=== PATIENT | female | born 1985 | race Caucasian/White ===

== ENCOUNTER 2021-09-13 03:55 | Inpatient (IN) | payer OTHER, SELFPAY ==
[2021-09-13] VITALS (65 sets, daily range): BP systolic 89–193; BP diastolic 51–168; PULSE 57–139; RESP 14–22; TEMP 36.3–37.7; O2SAT 96–99; BMI 37.7; BMI 37.5
[2021-09-13] MEDS: LACTATED RINGERS 1,000 ML 125 ML IV CONT (04:22)
--- NOTE | 2021-09-13 04:31 | WPDANESEPP ---
Anes - Eval Pre Procedure Procedure: Repeat c section Date/Time: 09/13/21 04:31 Surgeon: Wilma Pool Preop Diagnosis: Previous c section Pre Op Diagnosis: SROM Patient Data Age: 36 Gender: F Height: 1.55 m Weight: 90.5 kg Patient hx anesthesia problems: none Family hx anesthesia problems: none Results Review: All pre-operative results and documents have been reviewed as part of the pre-operative evaluation. FOR[facility]LY [facility] Past Medical History Medical History Obesity and not yet delivered Exam Day of Procedure 09/13/21 04:31 Patient weight: morbidly obese Heart: regular rate and rhythm Lungs: clear to auscultation Airway: Mallampati scale class III
[2021-09-13 04:38] LABS: Basophils Percent Auto 0.2 % (0.2-1.2); Eosinophils Absolute Auto 0.1 K/mm3 (0-0.3); Eosinophils Percent Auto 0.8 % (0-4.4); Hematocrit 37.1 % (37.0-47.0); Hemoglobin 12.2 g/dL (12.0-15.0); Immature Granulocyte Absolute 0.05 K/mm3 (0.00-0.031); Immature Granulocyte Percent A 0.5 % (0-0.5); Lymphocytes Absolute Auto 2.55 K/mm3 (0.9-3.2); Lymphocytes Percent Auto 24.2 % (18.3-44.2); Mean Corpuscular HGB Conc 32.9 g/dl (32-36); Mean Corpuscular Hemoglobin 30.3 pg (26-34); Mean Corpuscular Volume 92.1 fl (80-100); Mean Platelet Volume 10.9 fl (7.4-10.4); Monocytes Absolute Auto 0.6 K/mm3 (0.1-0.6); Monocytes Percent Auto 5.2 % (2.6-8.5); Neutrophils Absolute Auto 7.3 K/mm3 (1.3-6.7); Neutrophils Percent Auto 69.1 % (45.5-73.1); Platelet Count Result 205 k/mm3 (150-375); Red Blood Count 4.03 M/mm3 (4.2-5.4); Red Cell Distribution Width 14.1 % (11.5-14.5); White Blood Count 10.6 K/mm3 (4.5-10.0)
--- NOTE | 2021-09-13 04:40 | LDADM ---
This patient, Trice Baltazar, was admitted to Labor/Delivery/Recovery 120 on 09/13/21 at 03:55. Plans for labor, pain management and were discussed with patient. Patient/family oriented to hospital policies and general routines including ID bracelet, bed and alarms, visiting hours, pain management, procedures, bathroom and other care routines, personal items, smoking policy, room service/diet and guest tray routines, infant security routines, and visiting hours. Patient/Family are encouraged to report perceived risks to care and to ask questions if they do not understand what they are told or what they should do. See OBIX for further documentation.
--- NOTE | 2021-09-13 04:54 | PM.IMHP ---
H&P: HPI History of Present Illness Date/Time: 09/13/21 04:54 Chief Complaint: spontaneous rupture membranes Narrative: pre 6-year-old 3 para 03/29/2000 whose last menstrual period was 12/21/2020, EDC is 09/27/2021, confirmed by 8 week ultrasound presents at 38 weeks gestation with rupture membranes. Her has been uncomplicated with 2 noted previous sections. She will undergo repeat section PMFSH Past Medical History Medical History Obesity and not yet delivered Social History Social History Smoking status: Never smoker Meds Home Medications and Allergies Allergies Allergy/AdvReac Type Severity Reaction Status Date / Time kiwi Allergy Anaphylaxis Verified 09/13/21 04:46 Exam Const: General: cooperative and healthy appearing GI: Inspection: normal to inspection : External Female Exam: normal external appearance Speculum Exam - Vagina: normal appearance of the vagina Speculum Exam - Cervix: normal appearance of the cervix ( cervix 3 with clear fluid seen. heart tones were with variable) H&P: Results Labs Labs: Short CBC 09/13/21 Range/Units 04:30 WBC 10.6 H (4.5-10.0) K/mm3 Hgb 12.2 (12.0-15.0) g/dL Hct 37.1 (37.0-47.0) % Plt Count 205 (150-375) k/mm3 Assessment and Plan Assessment and plan (1) Term : Code(s): Z34.90 - Encounter for supervision of normal , unspecified, unspecified trimester Status: Acute Assessment and Plan: repeat low-transverse section (2) Previous section: Code(s): Z98.891 - History of uterine scar from previous surgery Status: Acute
[2021-09-13] MEDS: ceFAZolin 2 GM/D5W 50 ML 2 GM/50 ML BAG IVPB (05:04)
--- NOTE | 2021-09-13 05:37 | P.PNAN_ITS ---
Anes - Eval Final PreProcedure Day of Procedure 09/13/21 05:37 Patient weight: obese ASA classification: II Emergent: yes Anesthetic plan: proceed Anesthesia type and monitoring: regional spinal and standard monitoring Other findings: exam per MARCELINO Results Review: All pre-operative results and documents have been reviewed as part of the pre-op erative evaluation. Informed Consent: The patient's anesthetic plan and its attendant risks and benefits were discussed with the patient/family/POA. Questions were solicited and answers provided to the satisfaction of the patient/family/POA.
--- NOTE | 2021-09-13 05:50 | W.PM.PROC2 ---
Procedure Note - Detailed Date of Procedure 09/13/21 Pre-op Diagnosis SROM/Thirty-eight week gestation/ previous section Post-op Diagnosis Same Procedure Performed repeat low-transverse section Surgeon Ervin Pool MD Anesthesia Spinal Indications this is a 36-year-old multiparous at term with rupture of membranes and breech presentation as well as previous section x2 Findings breech male 6lb 0oz Description of Procedure the patient was admitted with spontaneous rupture membranes at 38 weeks gestation she was summer irregularly the and had some variables. Decision was made for repeat section as previously planned. The patient was placed in the supine position. Under excellent spinal anesthetic the abdomen was entered through the previous Pfannenstiel incision progressive layers fascia. Fascia incised midline cure number fashion. Underlying muscles were sharply dissected parietal peritoneum elevated clamped prick. This carried superiorly and inferiorly down the bladder. Bladder blade flap made bladder flap made bladder blade returned. A low transverse incision made breech was noted to the maternal left. The legs were delivered in a flexed position the arms delivered medially and the head delivered in flexed position. The cord blood was drawn. Placenta delivered intact manually uterus. Uterus delivered on the abdomen wrapped in a moist towel. After assuring no membranes or debris remained in the uterus uterus closed with continuous running locking 0 Vicryl from lateral edge to lateral edge followed by a 2nd imbricating running locking 0 Vicryl from lateral edge to lateral edge. Hemostasis was assured. Uterus returned to the abdomen after inspecting the ovaries and tubes. Laps removed and accounted for. The fascia closed with continuous running 0 Vicryl from lateral edge to midline bilaterally. Irrigation subcutaneous layer and the skin closed with 4-0 Vicryl and glue. Blood loss was 300cc by QBL. Sponge, needle, instrument counts were correct. There were no immediate complications Estimated Blood Loss 300 Drains No Packing No Pathology None sent Complications No immediate complications Condition Stable Disposition Floor
[2021-09-13] MEDS: OXYTOCIN 30 UNITS/NS 500 ML 30 UNITS/500 ML BAG 125 UNITS IV CONT (06:50)
[2021-09-13] MEDS: MORPHINE SULFATE INJ (*CRX) 10 MG/ML AMP 3 MG IV PUSH ×2 (07:42→08:05)
--- NOTE | 2021-09-13 08:15 | OBPPTRN ---
Patient transferred to post room #287 via stretcher. Support person present. Oriented to unit, room, information board, rooming in, admission packet and security measures. Patient verbalizes understanding.
[2021-09-13] MEDS: DEXTROSE 5%/0.45% SOD CHL 1,000 ML 125 ML IV CONT (11:36)
[2021-09-13] MEDS: KETOROLAC 30 MG/ML VIAL (*BKC) IV PUSH ×2 (11:36→17:11)
[2021-09-13] MEDS: POLYSACCHARIDE IRON COMPLEX 150 MG CAPSULE PO (17:00)
[2021-09-13] MEDS: DOCUSATE SODIUM 100 MG CAPSULE PO (17:11)
[2021-09-13] MEDS: KCL 20 MEQ/D5/0.45% SOD CHL 1,000 ML 125 ML IV CONT (19:42)
[2021-09-13] MEDS: HYDROcodone/acetaminophen (*CRX) 5-325 MG TABLET 1 TAB PO (22:07)
[2021-09-14] MEDS: HYDROcodone/acetaminophen (*CRX) 5-325 MG TABLET 1 TAB PO ×5 (03:46→20:54)
[2021-09-14] MEDS: KETOROLAC 30 MG/ML VIAL (*BKC) IV PUSH (03:47)
[2021-09-14 03:50] VITALS: BP 123/78; PULSE 97; RESP 16; TEMP 37; O2SAT 97
[2021-09-14 05:21] LABS: Basophils Percent Auto 0.2 % (0.2-1.2); Eosinophils Absolute Auto 0.1 K/mm3 (0-0.3); Eosinophils Percent Auto 0.4 % (0-4.4); Hematocrit 31.7 % (37.0-47.0); Hemoglobin 10.1 g/dL (12.0-15.0); Immature Granulocyte Absolute 0.05 K/mm3 (0.00-0.031); Immature Granulocyte Percent A 0.4 % (0-0.5); Lymphocytes Absolute Auto 1.48 K/mm3 (0.9-3.2); Lymphocytes Percent Auto 13.2 % (18.3-44.2); Mean Corpuscular HGB Conc 31.9 g/dl (32-36); Mean Corpuscular Hemoglobin 30.1 pg (26-34); Mean Corpuscular Volume 94.6 fl (80-100); Mean Platelet Volume 10.6 fl (7.4-10.4); Monocytes Absolute Auto 0.6 K/mm3 (0.1-0.6); Monocytes Percent Auto 5.4 % (2.6-8.5); Neutrophils Percent Auto 80.4 % (45.5-73.1); Platelet Count Result 167 k/mm3 (150-375); Red Blood Count 3.35 M/mm3 (4.2-5.4); Red Cell Distribution Width 14.3 % (11.5-14.5); White Blood Count 11.2 K/mm3 (4.5-10.0)
--- NOTE | 2021-09-14 08:09 | P.PNOB_ITS ---
OB - PN: Subj Subjective Date/time seen: 09/14/21 08:09 Patient comments: no complaints and pain well controlled baby status: doing well OB - PN: Obj Data Labs CBC & Chem 7: 09/14/21 03:56 Labs: Laboratory Results - last 24 hr 09/14/21 03:56 WBC 11.2 H RBC 3.35 L Hgb 10.1 L Hct 31.7 L MCV 94.6 MCH 30.1 MCHC 31.9 L RDW 14.3 Plt Count 167 MPV 10.6 H Immature Gran % (Auto) 0.4 Neut % (Auto) 80.4 H Lymph % (Auto) 13.2 L [place] % (Auto) 5.4 Eos % (Auto) 0.4 Baso % (Auto) 0.2 Lymph # (Auto) 1.48 [place] # (Auto) 0.6 Eos # (Auto) 0.1 Baso # (Auto) 0.0 Abs Immat Gran (auto) 0.05 H Absolute Neuts (auto) 9.0 H Absolute Nucleated RBC 0.0 Nucleated RBC % 0.0 OB - PN A/P Assessment and Plan (1) Previous section: Code(s): Z98.891 - History of uterine scar from previous surgery Status: Acute (2) Term : Code(s): Z34.90 - Encounter for supervision of normal , unspecified, unspecified trimester Status: Acute Plan day: 1 Plan: routine care Time Spent With Patient Time: Total time spent is greater than 50% in coordination of care (as documented) at patient's floor/unit and/or counseling patient: Time with patient: less than 15 minutes
[2021-09-14 08:30] VITALS: BP 110/71; PULSE 81; RESP 16; TEMP 36.8; O2SAT 99
[2021-09-14] MEDS: DOCUSATE SODIUM 100 MG CAPSULE PO ×2 (08:53→17:06)
[2021-09-14] MEDS: MULTIVIT/MIN/PREN/FOL AC/IRON TABLET 1 TAB PO (08:53)
--- NOTE | 2021-09-14 09:16 | WPDANLDNPN2 ---
Anes-Prog Note L&D-Neuraxial Date/Time: 09/14/21 09:16 Patient feedback: Patient satisfied with post-operative pain management.
--- NOTE | 2021-09-14 09:17 | WPDANLDPN2 ---
Anes-Prog Note L&D Date/Time: 09/14/21 09:17 Neuro status: Neuro function grossly intact. Vital Signs: Last Vital Signs Temp 37.0 C 09/14/21 03:50 Pulse 97 09/14/21 03:50 Resp 16 09/14/21 03:50 BP 123/78 09/14/21 03:50 Pulse Ox 97 09/14/21 03:50 O2 Del Method Room Air 09/13/21 13:10 Pain score (VAS): 0 I/O: Intake & Output 09/13/21 09/14/21 09/14/21 23:59 07:59 15:59 Intake Total 390 700 Output Total 550 2150 Balance -160 -1450 Patient feedback: Patient satisfied with anesthetic care.
[2021-09-14] MEDS: IBUPROFEN 600 MG TABLET PO (12:04)
[2021-09-14 19:20] VITALS: BP 122/81; PULSE 92; RESP 16; TEMP 37.7; O2SAT 100
--- NOTE | 2021-09-15 07:03 | PM.DS ---
DS: Admitting Diagnosis Discharge Date 09/14/21 Admitting Diagnosis Term /previous section/ malpresentation with spontaneous rupture membranes DS: Discharge Diagnosis Discharge Diagnosis (1) Previous section: Code(s): Z98.891 - History of uterine scar from previous surgery Status: Acute (2) Term : Code(s): Z34.90 - Encounter for supervision of normal , unspecified, unspecified trimester Status: Acute DS: Summary Hospital Course Hospital Course: the patient was admitted in active labor at term. Baby was breech with spontaneous rupture membranes and previous section. She underwent section which was unremarkable. Her hospital course was unremarkable although the baby was transferred due to dropping hemoglobin. She was up, voiding without difficulty, ambulating, eating regular diet, and generally without complaints. Time Spent with Patient Time attestation: Total time spent providing and/or coordinating discharge services: Discharge Plan Discharge Attending physician on discharge: Ervin Stratton Discharging Clinician: Ervin Stratton Anticipated Discharge Date/Time: 09/14/21 21:00 Patient Disposition: Home, Self-Care Activity: may shower, no straining, no driving and pelvic rest Diet: heart healthy Wound Care Instructions: follow printed instructions Discharge Instructions: Education: Mom and Baby Guide Given to: Mother Follow-Up: Call your delivering provider's office for an appointment to be seen in: 2 Weeks BREAST CARE: * Wear a snug supportive bra. * For engorgement discomfort: Breast Feeding: * Apply warm moist washcloths * Express milk as needed to relieve engorgement * Wear loose clothing Bottle Feeding: * May apply ice packs * For sore nipples: * Identify correct latch-on * Apply warm moist washcloths before and after nursing * Air dry nipples after nursing * May apply Lansinoh cream to nipples ABDOMINAL INCISION: (if applicable) * Allow incision to air dry * Do NOT use lotions for powders on your incision * When showering, allow soap and water to run over the incision, but do not wash incision EPISIOTOMY/PERINEAL CARE: * Until bleeding stops, use your corinne bottle after urinating * Change your pad frequently throughout the day ACTIVITY: * Rest as much as possible. * Do not exercise or lift anything heavier than your baby (such as laundry or other children.) * Avoid stairs or driving as much as possible. * Do not put anything into the vagina. No douching, tampons, or sexual activity until seen by physician. NOTIFY PHYSICIAN IF YOU HAVE ANY QUESTIONS OR IF ANY OF THE FOLLOWING SYMPTOMS OCCUR: * If your vaginal bleeding becomes foul smelling. * If your vaginal bleeding becomes more heavy than a period or if your bleeding changes from pink to bright red. However, you may pass an occasional walnut-sized clot once or twice for the first week . * If you experience a sharp, shooting pain in you calves. * If you discover a hard, reddened area on your breast or if you experience flu-like symptoms. DIET: * Eat regular, well-balanced meals. * Drink plenty of fluids daily. If , drink to thirst. Follow-up/Referrals: Ervin Stratton MD [Physician] - Discharge Medications: New hydrocodone-acetaminophen 5-325 mg tablet 1 tablet PO Q4H PRN (Reason: pain) Qty: 30 0RF Date of admission: 09/13/21 03:55 Primary Care Provider: PHYSICIAN,HAM STRINGER Admitting Provider: Ervin Stratton Attending physician on admission: Ervin Stratton Condition: Stable
[2021-09-15 14:40] LABS: Rapid Plasma Reagin Non-Reactive (NonReactive)
== END 2021-09-14 21:00 | disposition home or self-care (01) | DRG 788 ==
LOC: ANHLDR 05:11 → ANHOB2 08:25
PROVIDERS: Admitting Provider Obstetrics & Gynecology; Visit Provider Obstetrics & Gynecology
PROC: 10D00Z1 Extraction of Products of Conception, Low, Open Approach (ICD-10-PCS; CPT 59514; principal; 2021-09-13 05:00)
DX: O34.211 Maternal care for low transverse scar from previous cesarean delivery (principal); Z37.0 Single live birth; Z3A.38 38 weeks gestation of pregnancy; O36.8330 Maternal care for abnormalities of the fetal heart rate or rhythm, third trimester, not applicable or unspecified; O32.1XX0 Maternal care for breech presentation, not applicable or unspecified
CPT/HCPCS: 36415; 84112; 85025; 86592; 86850; 86900; 86901; A9270; J0690; J1165; J1885; J2270; J2274; J2405; J2590; J3480; J7120

== ENCOUNTER 2024-03-08 20:25 | Observation (INO) | payer BC, SELFPAY ==
[2024-03-08] VITALS (15 sets, daily range): BP systolic 122–126; BP diastolic 68–87; PULSE 82–115; O2SAT 97–100; BMI 34.5
[2024-03-08] MEDS: TERBUTALINE SULFATE 1 MG/ML VIAL 0.25 MG SUB-Q ×2 (21:15→21:46)
[2024-03-08] MEDS: DEXTROSE 5%/LACTATED RINGERS 1,000 ML 250 ML IV CONT (21:21)
[2024-03-08 21:53] LABS: Add Urine Microscopic? YES; Appearance Urine Clear (Clear); Bacteria Urine None Seen /hpf; Bilirubin Urine Negative (Negative); Blood Urine Negative (Negative); Color Urine Yellow (Yellow); Glucose Urine UA Negative (Negative); Ketones Urine Negative (Negative); Leukocyte Esterase Ur 1+ LEU/UL (Negative); Nitrate Urine Negative (Negative); Non Pathogenic Casts 0-2; Protein Urine Negative (Negative); RBC Urine 0-2 /hpf (0-2); Specific Grav Ur 1.008 (1.001-1.035); Squamous Epithelial Cell Urine Occasional /hpf (Few); Urobilinogen Urine 0.2 mg/dL (<2.0); pH Urine 6.5 (5.0-9.0)
[2024-03-08 22:17] LABS: Fetal Fibronectin Negative
--- NOTE | 2024-04-07 11:11 | PM.OBTRLD ---
OB - Triage/Final Diagnosis Visit Information Comments/Additional reasons for admission: I have assessed the risk for this patient, Trice Baltazar, and determined that she would benefit from observation care. Evaluation Laboratory results: Laboratory Tests 03/08/24 21:32 Urine Color Yellow Urine Appearance Clear Urine pH 6.5 Ur Specific [place] 1.008 Urine Protein Negative Urine Glucose (UA) Negative Urine Ketones Negative Ur Blood (Man) Negative Urine Nitrate Negative Urine Bilirubin Negative Urine Urobilinogen 0.2 Leukocyte Esterase Rfl 1+ H Urine RBC 0-2 Urine WBC 6-10 H Ur Squamous Epith Cells Occasional Urine Bacteria None seen Urine Casts 0-2 Fibronectin Negative Final Diagnosis (1) False labor: Code(s): O47.9 - False labor, unspecified Status: Acute
== END 2024-03-08 22:51 | disposition home or self-care (01) ==
PROVIDERS: Admitting Provider Obstetrics & Gynecology; Visit Provider Obstetrics & Gynecology
DX: O47.03 False labor before 37 completed weeks of gestation, third trimester (principal); Z3A.33 33 weeks gestation of pregnancy
CPT/HCPCS: 81001; 82731; 87086; 96372; G0378; G0379; J3105; J7121

== ENCOUNTER 2024-03-13 18:51 | Observation (INO) | payer BC, SELFPAY ==
[2024-03-13] VITALS (57 sets, daily range): BP systolic 106–109; BP diastolic 65–71; PULSE 74–98; TEMP 36.8; O2SAT 97–100; BMI 34.2
[2024-03-13] MEDS: TERBUTALINE SULFATE 1 MG/ML VIAL 0.25 MG SUB-Q ×2 (19:50→20:28)
--- NOTE | 2024-03-13 20:00 | OBADM ---
This patient, Trice Baltazar, admitted to the OB room Labor/Delivery/Recovery 120 for observation. Patient/family oriented to hospital policies and general routines including ID bracelet, bed and alarms, visiting hours, pain management, procedures, bathroom and other care routines, personal items, smoking policy, room service/diet, and visiting hours. Patient/Family are encouraged to report perceived risks to care and to ask questions if they do not understand what they are told or what they should do.
[2024-03-13 20:02] LABS: Add Urine Microscopic? YES; Appearance Urine Clear (Clear); Bacteria Urine None Seen /hpf; Bilirubin Urine Negative (Negative); Blood Urine Negative (Negative); Color Urine Yellow (Yellow); Glucose Urine UA Negative (Negative); Ketones Urine Negative (Negative); Leukocyte Esterase Ur 1+ LEU/UL (Negative); Nitrate Urine Negative (Negative); Non Pathogenic Casts 0-2; Protein Urine Negative (Negative); RBC Urine 0-2 /hpf (0-2); Specific Grav Ur 1.005 (1.001-1.035); Squamous Epithelial Cell Urine Occasional /hpf (Few); Urobilinogen Urine 0.2 mg/dL (<2.0); pH Urine 6.5 (5.0-9.0)
[2024-03-13] MEDS: NIFEdipine 10 MG CAPSULE PO ×2 (20:09→22:02)
[2024-03-13] MEDS: BETAMETHASONE SOD PHOS/ACETATE 30 MG/5 ML VIAL 12 MG IM (22:22)
[2024-03-14] VITALS (89 sets, daily range): BP systolic 101–115; BP diastolic 54–69; PULSE 79–115; TEMP 36.6–37.1; O2SAT 95–99
[2024-03-14] MEDS: LACTATED RINGERS 1,000 ML 999 ML IV CONT (02:20)
[2024-03-14] MEDS: NIFEdipine 10 MG CAPSULE 20 MG PO ×2 (03:49→10:03)
[2024-03-14 07:00] LABS: OBXCEM ROM Plus Negative (Negative)
--- NOTE | 2024-03-14 07:35 | PC.NURSE ---
Dr. Wilma Pool at bedside to assess pt and discuss plan of care. Pt to receive Celestone at 12hrs from first dose. July D/C home after Celestone injection.
--- NOTE | 2024-03-14 07:39 | PM.IMHP ---
H&P: HPI History of Present Illness Date/Time: 03/14/24 07:39 Chief Complaint: Pre term labor at 34 weeks Narrative: some multiparous patient who is 34 weeks gestation previous x2 3 admitted with contractions. She received 2 doses of terbutaline was confirmed to Procardia and is presently stable she has gotten 1 dose of steroid get her 2nd today will be home on labor precautions on 20u mg of Procardia q.6 hoursf Review of Systems Review of Systems: All systems reviewed & are unremarkable except as noted in HPI and below PMFSH Past Medical History Medical History and not yet delivered Obesity Social History Social History Smoking status: Never smoker Substance use: never Spiritual care concerns: No Meds Home Medications and Allergies Home Medications ?Medication ?Instructions ?Recorded ?Confirmed ?Type vits no.130-ferrous fum 1 tablet PO DAILY 03/08/24 03/13/24 History 27 mg iron-folic acid 800 mcg tablet ( Vitamin) Allergies Allergy/AdvReac Type Severity Reaction Status Date / Time kiwi Allergy Anaphylaxis Verified 03/13/24 20:13 Vital Signs Vital Signs - 24 hr 03/13/24 19:20 03/13/24 19:25 03/13/24 19:30 Temperature Pulse Rate 81 Blood Pressure 108/71 Pulse Oximetry 100 100 100 Oxygen Delivery 03/13/24 19:35 03/13/24 19:40 03/13/24 19:47 Temperature Pulse Rate Blood Pressure Pulse Oximetry 100 100 98 Oxygen Delivery 03/13/24 19:52 03/13/24 19:57 03/13/24 20:00 Temperature Pulse Rate 89 Blood Pressure 109/68 Pulse Oximetry 100 99 Oxygen Delivery 03/13/24 20:02 03/13/24 20:07 03/13/24 20:07 Temperature Pulse Rate Blood Pressure Pulse Oximetry 100 100 Oxygen Delivery Room Air 03/13/24 20:12 03/13/24 20:17 03/13/24 20:22 Temperature Pulse Rate Blood Pressure Pulse Oximetry 99 99 99 Oxygen Delivery 03/13/24 20:27 03/13/24 20:30 03/13/24 20:32 Temperature Pulse Rate 76 Blood Pressure 109/65 Pulse Oximetry 100 99 Oxygen Delivery 03/13/24 20:37 03/13/24 20:42 03/13/24 20:47 Temperature Pulse Rate Blood Pressure Pulse Oximetry 100 99 100 Oxygen Delivery 03/13/24 20:55 03/13/24 21:00 03/13/24 21:05 Temperature Pulse Rate Blood Pressure Pulse Oximetry 100 100 100 Oxygen Delivery 03/13/24 21:10 03/13/24 21:15 03/13/24 21:20 Temperature Pulse Rate Blood Pressure Pulse Oximetry 100 100 99 Oxygen Delivery 03/13/24 21:25 03/13/24 21:32 03/13/24 21:37 Temperature Pulse Rate Blood Pressure Pulse Oximetry 100 100 100 Oxygen Delivery 03/13/24 21:42 03/13/24 21:47 03/13/24 21:56 Temperature Pulse Rate Blood Pressure Pulse Oximetry 99 98 97 Oxygen Delivery 03/13/24 22:01 03/13/24 22:06 03/13/24 22:13 Temperature Pulse Rate Blood Pressure Pulse Oximetry 100 100 100 Oxygen Delivery 03/13/24 22:18 03/13/24 22:23 03/13/24 22:24 Temperature Pulse Rate 84 Blood Pressure 106/66 Pulse Oximetry 99 100 Oxygen Delivery 03/13/24 22:28 03/13/24 22:33 03/13/24 22:38 Temperature Pulse Rate Blood Pressure Pulse Oximetry 100 98 98 Oxygen Delivery 03/13/24 22:43 03/13/24 22:48 03/13/24 22:53 Temperature Pulse Rate Blood Pressure Pulse Oximetry 99 99 98 Oxygen Delivery 03/13/24 22:58 03/13/24 23:01 03/13/24 23:03 Temperature Pulse Rate 88 Blood Pressure 109/68 Pulse Oximetry 98 98 Oxygen Delivery 03/13/24 23:08 03/13/24 23:13 03/13/24 23:30 Temperature Pulse Rate Blood Pressure Pulse Oximetry 99 99 100 Oxygen Delivery 03/13/24 23:34 03/13/24 23:35 03/13/24 23:38 Temperature 98.3 F 98.3 F Pulse Rate Blood Pressure Pulse Oximetry 99 Oxygen Delivery 03/13/24 23:40 03/13/24 23:45 03/13/24 23:50 Temperature Pulse Rate Blood Pressure Pulse Oximetry 99 99 98 Oxygen Delivery 03/13/24 23:55 03/14/24 00:00 03/14/24 00:01 Temperature Pulse Rate 85 Blood Pressure 105/58 L Pulse Oximetry 98 98 Oxygen Delivery 03/14/24 00:05 03/14/24 00:10 03/14/24 00:15 Temperature Pulse Rate Blood Pressure Pulse Oximetry 98 97 97 Oxygen Delivery 03/14/24 00:20 03/14/24 00:25 03/14/24 00:30 Temperature Pulse Rate Blood Pressure Pulse Oximetry 96 96 96 Oxygen Delivery 03/14/24 00:35 03/14/24 00:40 03/14/24 00:45 Temperature Pulse Rate Blood Pressure Pulse Oximetry 96 96 96 Oxygen Delivery 03/14/24 00:50 03/14/24 00:55 03/14/24 01:00 Temperature Pulse Rate Blood Pressure Pulse Oximetry 96 96 96 Oxygen Delivery 03/14/24 01:01 03/14/24 01:05 03/14/24 01:10 Temperature Pulse Rate 86 Blood Pressure 101/61 Pulse Oximetry 96 97 Oxygen Delivery 03/14/24 01:15 03/14/24 01:20 03/14/24 01:25 Temperature Pulse Rate Blood Pressure Pulse Oximetry 96 98 97 Oxygen Delivery 03/14/24 01:30 03/14/24 01:35 03/14/24 01:40 Temperature Pulse Rate Blood Pressure Pulse Oximetry 97 98 97 Oxygen Delivery 03/14/24 01:45 03/14/24 01:50 03/14/24 01:55 Temperature Pulse Rate Blood Pressure Pulse Oximetry 98 97 97 Oxygen Delivery 03/14/24 02:20 03/14/24 02:25 03/14/24 02:30 Temperature Pulse Rate Blood Pressure Pulse Oximetry 99 98 99 Oxygen Delivery 03/14/24 02:35 03/14/24 02:40 03/14/24 02:45 Temperature Pulse Rate Blood Pressure Pulse Oximetry 99 98 98 Oxygen Delivery 03/14/24 02:50 03/14/24 02:55 03/14/24 03:00 Temperature Pulse Rate Blood Pressure Pulse Oximetry 98 99 98 Oxygen Delivery 03/14/24 03:05 03/14/24 03:10 03/14/24 03:28 Temperature Pulse Rate Blood Pressure Pulse Oximetry 99 99 99 Oxygen Delivery 03/14/24 03:31 03/14/24 03:32 03/14/24 03:33 Temperature 98.8 F Pulse Rate 100 Blood Pressure 101/69 Pulse Oximetry 98 Oxygen Delivery 03/14/24 03:38 03/14/24 03:43 03/14/24 03:48 Temperature Pulse Rate Blood Pressure Pulse Oximetry 98 98 98 Oxygen Delivery 03/14/24 03:53 03/14/24 03:58 03/14/24 04:01 Temperature Pulse Rate 100 Blood Pressure 105/54 L Pulse Oximetry 98 99 Oxygen Delivery 03/14/24 04:03 03/14/24 04:08 03/14/24 04:13 Temperature Pulse Rate Blood Pressure Pulse Oximetry 97 97 97 Oxygen Delivery 03/14/24 04:18 03/14/24 04:23 03/14/24 04:28 Temperature Pulse Rate Blood Pressure Pulse Oximetry 96 96 96 Oxygen Delivery 03/14/24 04:33 03/14/24 04:38 03/14/24 04:43 Temperature Pulse Rate Blood Pressure Pulse Oximetry 97 95 96 Oxygen Delivery 03/14/24 04:48 03/14/24 04:59 03/14/24 05:04 Temperature Pulse Rate Blood Pressure Pulse Oximetry 97 98 98 Oxygen Delivery 03/14/24 05:09 03/14/24 05:14 03/14/24 05:19 Temperature Pulse Rate Blood Pressure Pulse Oximetry 97 97 98 Oxygen Delivery 03/14/24 05:24 03/14/24 05:29 03/14/24 05:34 Temperature Pulse Rate Blood Pressure Pulse Oximetry 97 96 96 Oxygen Delivery 03/14/24 05:39 03/14/24 05:44 03/14/24 05:49 Temperature Pulse Rate Blood Pressure Pulse Oximetry 96 95 96 Oxygen Delivery 03/14/24 05:54 03/14/24 05:59 03/14/24 06:01 Temperature Pulse Rate 111 H Blood Pressure 101/61 Pulse Oximetry 96 96 Oxygen Delivery 03/14/24 06:04 03/14/24 06:09 03/14/24 06:14 Temperature Pulse Rate Blood Pressure Pulse Oximetry 98 97 98 Oxygen Delivery 03/14/24 06:19 03/14/24 06:30 03/14/24 06:35 Temperature Pulse Rate Blood Pressure Pulse Oximetry 97 99 99 Oxygen Delivery 03/14/24 06:40 03/14/24 06:45 03/14/24 06:50 Temperature Pulse Rate Blood Pressure Pulse Oximetry 98 98 99 Oxygen Delivery 03/14/24 06:55 03/14/24 07:00 03/14/24 07:05 Temperature Pulse Rate Blood Pressure Pulse Oximetry 99 99 98 Oxygen Delivery 03/14/24 07:10 03/14/24 07:15 03/14/24 07:20 Temperature Pulse Rate Blood Pressure Pulse Oximetry 98 98 99 Oxygen Delivery 03/14/24 07:25 Temperature Pulse Rate Blood Pressure Pulse Oximetry 98 Oxygen Delivery Exam Const: General: cooperative, healthy appearing and comfortable Nutritional Appearance: average body habitus HENMT: Head: normal to inspection Resp: Effort & Inspection: normal respiratory effort Cardio: Rate: regular rate Rhythm: regular rhythm Heart sounds: S1 normal heart sound present and S2 normal heart sound present GI: Inspection: normal to inspection ( gravid soft uterus) : External Female Exam: normal external appearance Speculum Exam - Vagina: normal appearance of the vagina Speculum Exam - Cervix: normal appearance of the cervix ( cervix is long thick and closed by RN exam) H&P: Results Labs Labs: Urine 03/13/24 Range/Units 19:38 Urine Color Yellow (Yellow) Urine Appearance Clear (Clear) Urine pH 6.5 (5.0-9.0) Ur Specific [place] 1.005 (1.001-1.035) Urine Protein Negative (Negative) mg/dL Urine Glucose (UA) Negative (Negative) mg/dL Assessment and Plan Assessment and plan (1) with history of pre-term labor: Code(s): O09.219 - Supervision of with history of pre-term labor, unspecified trimester Status: Acute Plan home on Procardia
--- NOTE | 2024-03-14 07:46 | PM.DS ---
DS: Admitting Diagnosis Discharge Date 03/14/2024 Admitting Diagnosis labor DS: Discharge Diagnosis Discharge Diagnosis (1) with history of pre-term labor: Code(s): O09.219 - Supervision of with history of pre-term labor, unspecified trimester Status: Acute DS: Summary Hospital Course Reason for hospitalization: patient was admitted with contractions and treated with terbutaline the Procardia. Her cervix remained closed throughout the stay. Hospital Course: Patient remained stable with irregular contractions. Procardia. To be controlling contractions and she received 2 doses of Celestone. Time Spent with Patient Time attestation: Total time spent providing and/or coordinating discharge services: Exam Const: General: cooperative, healthy appearing and comfortable Nutritional Appearance: average body habitus Orientation/consciousness: oriented to person, oriented to place and oriented to time Resp: Effort & Inspection: normal respiratory effort Cardio: Rate: regular rate Rhythm: regular rhythm Heart sounds: S1 normal heart sound present and S2 normal heart sound present GI: Inspection: normal to inspection ( Soft gravid uterus) : External Female Exam: normal external appearance Speculum Exam - Vagina: normal appearance of the vagina Speculum Exam - Cervix: normal appearance of the cervix ( cervix long thick and closed) DS: Data Data Completed and Pending Labs on day of discharge: Labs from last 24 hours 03/14/24 03/13/24 03:26 19:38 Urine Color Yellow Urine Appearance Clear Urine pH 6.5 Ur Specific [place] 1.005 Urine Protein Negative Urine Glucose (UA) Negative Urine Ketones Negative Ur Blood (Man) Negative Urine Nitrate Negative Urine Bilirubin Negative Urine Urobilinogen 0.2 Leukocyte Esterase Rfl 1+ H Urine RBC 0-2 Urine WBC 6-10 H Ur Squamous Epith Cells Occasional Urine Bacteria None seen Urine Casts 0-2 Membranes Rupture Rom plus negative Discharge Plan Discharge Attending physician on discharge: Ervin Stratton Discharging Clinician: Ervin Stratton Patient Disposition: Home, Self-Care Activity: may shower, no straining and pelvic rest Diet: heart healthy Wound Care Instructions: follow printed instructions Patient Instructions: Antibiotic Form Patient Language: Guyanese Stand Alone Forms: General Discharge Information Follow-up/Referrals: Ervin Stratton MD [Physician] - Discharge Medications: No Action Vitamin 27 mg iron- 800 mcg tablet 1 tablet PO DAILY Date of admission: 12/16/24 18:51 Primary Care Provider: UNKNOWN,DOCTOR Admitting Provider: Ervin Stratton Attending physician on admission: Ervin Stratton Condition: Stable
[2024-03-14] MEDS: BETAMETHASONE SOD PHOS/ACETATE 30 MG/5 ML VIAL 12 MG IM (10:06)
[2024-03-14] MEDS: TETANUS,DIPHTHERIA,AC PERTUSSIS ADULT (0.5 ML) BOOSTRIX IM (10:26)
== END 2024-03-14 10:48 | disposition home or self-care (01) ==
LOC: ANHLDR 19:16 → ANHOBPP 23:12
PROVIDERS: Admitting Provider Obstetrics & Gynecology; Visit Provider Obstetrics & Gynecology
DX: O60.03 Preterm labor without delivery, third trimester (principal); Z3A.34 34 weeks gestation of pregnancy
CPT/HCPCS: 81001; 84112; 87086; 90471; 90715; 96360; 96361; 96372; A9270; G0378; G0379; J0702; J3105; J7120

== ENCOUNTER 2024-03-25 15:24 | Outpatient (CLI) | payer BC, SELFPAY ==
[2024-03-25 16:25] VITALS: BP 120/77; PULSE 90
[2024-03-25 16:28] LABS: OBXCEM ROM Plus Negative (Negative)
== END 2024-03-25 16:15 | disposition home or self-care (01) ==
LOC: ANHOBOP 16:04
PROVIDERS: Visit Provider Obstetrics & Gynecology Gynecology
DX: O41.8X90 Other specified disorders of amniotic fluid and membranes, unspecified trimester, not applicable or unspecified (principal); Z3A.00 Weeks of gestation of pregnancy not specified
CPT/HCPCS: 59025; 84112

== ENCOUNTER 2024-04-20 11:27 | Outpatient (CLI) | payer BC, SELFPAY ==
[2024-04-20 12:00] LABS: Basophils Percent Auto 0.2 % (0.2-1.2); Eosinophils Percent Auto 0.3 % (0-4.4); Hematocrit 32.1 % (37.0-47.0); Hemoglobin 10.7 g/dL (12.0-15.0); Immature Granulocyte Absolute 0.04 K/mm3 (0.00-0.031); Immature Granulocyte Percent A 0.4 % (0-0.5); Lymphocytes Absolute Auto 1.41 K/mm3 (0.9-3.2); Mean Corpuscular HGB Conc 33.3 g/dl (32-36); Mean Platelet Volume 9.7 fl (7.4-10.4); Monocytes Absolute Auto 0.6 K/mm3 (0.1-0.6); Monocytes Percent Auto 6.8 % (2.6-8.5); Neutrophils Absolute Auto 7.3 K/mm3 (1.3-6.7); Neutrophils Percent Auto 77.3 % (45.5-73.1); Platelet Count Result 224 k/mm3 (150-375); Red Blood Count 3.69 M/mm3 (4.2-5.4); Red Cell Distribution Width 14.9 % (11.5-14.5); White Blood Count 9.4 K/mm3 (4.5-10.0)
[2024-04-20 12:51] LABS: HIV 1/2 Ab P24 Ag Result Negative (Negative)
[2024-04-20 14:24] LABS: Rapid Plasma Reagin Non-Reactive (NonReactive)
--- OUTSIDE RECORDS SUMMARY | 2024-04-21 04:34 | XMS_ITS | Clinical Summary ---
Author Organization [facility] Address [address] [place] [address]. [place], [place] [id number] [place] [id number] Care Team Providers Care Electrician'S Assistant Name Role Phone Kayleigh Vargas NP Primary Care Provider [phone] Allergies Active Allergy Reactions Criticality Noted Date Comments Kiwi Fruit Eyes Water & Itch Medium 10/21/2020 Medications vitamin 27-1 MG Tab tablet Take 1 tablet by mouth daily. Active Active Problems No known active problems Family History Medical History Relation Comments Depression Maternal Grandfather Diabetes Maternal Grandfather Cancer Maternal Grandmother Hypertension Maternal Grandmother Stroke Maternal Grandmother Depression Mother Relation Status Comments Maternal Grandfather Maternal Grandmother Mother Social History Tobacco Use Types Packs/Day Years Used Date Smoking Tobacco: Never Smokeless Tobacco: Never Tobacco Cessation:Counseling Given: Yes Alcohol Use Standard Drinks/Week Comments Not Currently 0 (1 standard drink = 0.6 oz pur e alcohol) PHQ-2 Answer Date Recorded PHQ-2 Score - If the patient scores above 3, please move on to questions 3-9 0 10/21/2020 Comments No Sex and Gender Information Value Date Recorded Sex Assigned at Not on file Legal Sex Female 2:07 PM CDT Gender Identity Not on file Sexual Orientation Not on file Last Filed Vital Signs Vital Sign Reading Time Taken Comments Blood Pressure 117/77 10/21/2020 2:22 PM CDT Pulse 76 10/21/2020 2:22 PM CDT Temperature 36.3 ??C (97.4 ??F) 10/21/2020 2:22 PM CD T Respiratory Rate 18 10/21/2020 2:22 PM CDT Oxygen Saturation 98% 10/21/2020 2:22 PM CDT Inhaled Oxygen Concentration - - Weight 73.5 kg (162 lb) 10/21/2020 2:22 PM CDT Height 154.9 cm (5' 1 ) 10/21/2020 2:22 PM CDT Body Mass Index 30.61 10/21/2020 2:22 PM CDT Plan of Treatment Health Maintenance Due Date Last Done Comments Cervical Cancer Screening Pa p Smear (Age 30 to 64) Every 3 Years 1986 Hepatitis C 01/22/2004 Hepatitis B Vaccines (1 of 3 - 19+ 3-dose series) 2005 Cervical Cancer Screening Pa p with HPV Testing (Age 30 to 64) Every 5 Years 01/22/2016 Cervical Cancer Screening wi th HPV 01/22/2016 Annual Physical 10/21/2021 10/21/2020 COVID-19 Vaccine ( - 2023-2 5 season) 2023 Influenza Adult (#1) 2023 12/18/2016 DTaP, Tdap and Td Vaccines ( 4 - Td or Tdap) 07/19/2031 07/18/2021, 03/02/2017, 09/29/2015 HPV Vaccines Aged Out No longer eligi ble based on patient's age to complete this topic Meningococcal Vaccine Aged Out No harmony cadence eligible based on patient's age to complete this topic Pneumococcal Vaccine: Pediatrics (0 to 5 Years) and At-Risk Patients (6 to 64 Years) Aged Out No longer eligible b ased on patient's age to complete this topic RSV Immunizations Under 20 Months Aged Out No longer eligible b ased on patient's age to complete this topic Insurance [facility] Care Teams Electrician'S Assistant Relationship Specialty Start Date End Date Kayleigh Vargas NP [address] [place] [address] PCP - General NURSE PRACTITIONER 10/03/20
== END 2024-04-20 11:28 | disposition home or self-care (01) ==
LOC: ANHOBOP 11:29
PROVIDERS: Visit Provider Obstetrics & Gynecology
DX: Z34.90 Encounter for supervision of normal pregnancy, unspecified, unspecified trimester (principal); Z3A.00 Weeks of gestation of pregnancy not specified
CPT/HCPCS: 36415; 85025; 86592; 86703; 86850; 86900; 86901; G0432

== ENCOUNTER 2024-04-21 03:39 | Inpatient (IN) | payer BC, SELFPAY ==
--- NOTE | 2024-04-20 07:38 | HP_ITS ---
This report was moved to the correct visit on 04/24/2024. The original report was signed by Ervin Stratton MD on 04/20/24 0738. H&P: HPI History of Present Illness Date/Time: 04/20/24 07:35 Chief Complaint: term who desires permanent sterilization Narrative: 31-year-old 4 para 3 admitted for repeat section and bilateral tubal ligation. She desires permanent irreversible sterilization and alternatives have been discussed she understands this to be a completely permanent procedure and irreversible the has been otherwise uncomplicated short of labor which she treated with Procardia Review of Systems Review of Systems: All systems reviewed & are unremarkable except as noted in HPI and below PMFSH Past Medical History Medical History and not yet delivered Obesity Social History Social History Smoking status: Never smoker Substance use: never Spiritual care concerns: No Meds Home Medications and Allergies Home Medications ?Medication ?Instructions ?Recorded ?Confirmed ?Type vits no.130-ferrous fum 1 tablet PO DAILY 03/08/24 03/13/24 History 27 mg iron-folic acid 800 mcg tablet ( Vitamin) nifedipine 20 mg capsule 20 mg PO Q6H #60 caps 03/14/24 Rx Allergies Allergy/AdvReac Type Severity Reaction Status Date / Time kiwi Allergy Anaphylaxis Verified 03/13/24 20:13 Exam Const: General: cooperative, healthy appearing and comfortable Nutritional Appearance: average body habitus Orientation/consciousness: oriented to person, oriented to place and oriented to time HENMT: Head: normal to inspection Resp: Effort & Inspection: normal respiratory effort Cardio: Rate: regular rate Rhythm: regular rhythm Heart sounds: S1 normal heart sound present and S2 normal heart sound present GI: Inspection: normal to inspection ( gravid soft uterus) : External Female Exam: normal external appearance Speculum Exam - Vagina: normal appearance of the vagina Speculum Exam - Cervix: normal appearance of the cervix Assessment and Plan Assessment and plan (1) Term : Code(s): Z34.90 - Encounter for supervision of normal , unspecified, unspecified trimester Status: Acute (2) Previous section: Code(s): Z98.891 - History of uterine scar from previous surgery Status: Acute (3) Sterilization: Code(s): Z30.2 - Encounter for sterilization Status: Acute Plan proceed with repeat section bilateral tubal ligation Please be advised this is a medical document. It is intended for [id number]-[id number] communication. It is written in medical language and may contain unfamiliar abbreviations or verbiage. Medical documents are intended to carry relevant information, facts as evident, and the clinical opinion of the practitioner at the time of the encounter. This report may have been done utilizing a voice recognition system. Attempts have been made to correct errors. However, there may be uncorrected grammatical, spelling, and recognition errors present. The file time of this note does not necessarily represent the time the patient was seen. Report Initialized date/time: Ervin Stratton MD 04/20/24737 Electronically signed by: Ervin Stratton MD 04/20/24737 [facility]
[2024-04-21] VITALS (86 sets, daily range): BP systolic 87–130; BP diastolic 44–93; PULSE 62–213; RESP 14–21; TEMP 36.6–36.9; O2SAT 96–100; BMI 36.7
--- NOTE | 2024-04-21 02:21 | WPDHPUPDATE1 ---
History and Physical Update Update Date/Time: 04/21/24 02:21 History and Physical has been reviewed, including an updated exam of the patient. There are NO changes in the patient's condition. Risks, benefits, and alternatives have been discussed and questions answered. Patient agrees to proceed with procedure.
--- NOTE | 2024-04-21 03:53 | WPDHPUPDATE1 ---
History and Physical Update Update Date/Time: 04/21/24 03:53 History and Physical has been reviewed, including an updated exam of the patient. There are NO changes in the patient's condition. Risks, benefits, and alternatives have been discussed and questions answered. Patient agrees to proceed with procedure. patient is admitted with ruptured membranes but contractions are irregular proceed with at scheduled time unless labor pretty proceed
--- NOTE | 2024-04-21 03:57 | P.PNAN_ITS ---
Anes - Eval Pre Procedure Procedure: Operation Date: 04/21/24 07:30 Proposed Procedures p Repeat Section with Tubal Ligation - Ervin Pool MD Date/Time: 04/21/24 03:57 Preop Diagnosis: Previous c section Pre Op Diagnosis: leaking Patient Data Age: 39 Gender: F Height: Weight: Allergies Allergy/AdvReac Type Severity Reaction Status Date / Time kiwi Allergy Anaphylaxis Verified 04/20/24 11:17 Home Medications ?Medication ?Instructions ?Recorded ?Confirmed ?Type vits no.130-ferrous fum 1 tablet PO DAILY 03/08/24 04/20/24 History 27 mg iron-folic acid 800 mcg tablet ( Vitamin) hydrocodone 5 mg-acetaminophen 325 1 tablet PO Q4H PRN pain #30 tabs 04/21/24 Rx mg tablet Patient hx anesthesia problems: post op nausea/vomiting Family hx anesthesia problems: none Results Review: All pre-operative results and documents have been reviewed as part of the pre- operative evaluation. PMFSH Past Medical History Medical History Sterilization and not yet delivered Obesity Surgical History Surgical History Previous section Social History Social History Smoking status: Never smoker Substance use: never Spiritual care concerns: No Exam Day of Procedure 04/21/24 03:57 Patient weight: obese
[2024-04-21] MEDS: LACTATED RINGERS 1,000 ML 999 ML IV CONT (04:33)
[2024-04-21] MEDS: ACETAMINOPHEN 500 MG TABLET 1000 MG PO (04:46)
--- NOTE | 2024-04-21 04:49 | LDADM ---
This patient, Trice Baltazar, was admitted to Labor/Delivery/Recovery 119 on 04/21/24 at 03:39. Plans for labor, pain management and were discussed with patient. Patient/family oriented to hospital policies and general routines including ID bracelet, bed and alarms, visiting hours, pain management, procedures, bathroom and other care routines, personal items, smoking policy, room service/diet and guest tray routines, infant security routines, and visiting hours. Patient/Family are encouraged to report perceived risks to care and to ask questions if they do not understand what they are told or what they should do. See OBIX for further documentation.
[2024-04-21] MEDS: TERBUTALINE SULFATE 1 MG/ML VIAL (05:25)
[2024-04-21] MEDS: FAMOTIDINE 20 MG/2 ML VIAL IV PUSH (05:31)
[2024-04-21] MEDS: ONDANSETRON INJ 4 MG/2 ML VIAL IV PUSH (05:31)
[2024-04-21] MEDS: ceFAZolin 2 GM/D5W 50 ML 2 GM/50 ML BAG IVPB (05:47)
[2024-04-21] MEDS: AZITHROMYCIN 500 MG/NS 250 ML 500 MG/250 ML BAG 250 MG IVPB (05:47)
--- NOTE | 2024-04-21 06:39 | W.PM.OBCSD ---
OB - Delivery Note Procedure Delivery date: 04/21/24 Pre-op diagnosis: Previous Delivery and Other ( sterilization) Post-op Diagnosis: Same Induction method: None Delivery monitor: External FHT Prior to decision for section, ACOG/SMFM labor guidelines were considered and discussed with the patient and staff. Decision made to proceed with the section.: Yes Procedure Performed: Repeat and Tubal Ligation Surgeon: Ervin Pool MD Anesthesia type: Spinal Description of Procedure/Findings: patient was admitted with spontaneous rupture membranes she was actually scheduled a few hours to follow for repeat section tubal ligation she contracted fairly regularly she was taken to the back the procedure was begun her shoes placed in the supine spinal anesthetic was placed. The abdomen was entered through the previous Pfannenstiel incision progressive layers to the fascia. Fascia incised midline carried number dock fashion bilaterally. Underlying muscles sharply dissected. Parietal peritoneum a by Malia clamps and by sharp dissection. The carried superiorly and inferiorly dome of the bladder. Bladder blade placed. Bladder flap formed. Bladder blade returned. Lower uterine segment was very thin and incision made in the head delivered the JOSHUA position. Anterior posterior shoulder delivered spontaneously clamped was cut and passed off the table with a good cry. Placenta delivered intact manually. Uterus delivered on the abdomen wrapped in a moist towel. After assuring no membranes or debris remained in the uterus, the uterus closed with continuous running 0 Vicryl from lateral edge to lateral edge. This followed by 2nd imbricating running locking 0 Vicryl from lateral edge to lateral edge. Hemostasis was assured. The right fallopian tube was grasped a good knuckle of tube formed with 0 chromic the portion between incised and distal and proximal legs free tied with 0 chromic in the portion between cut off and sent as portion of right fallopian tube. In similar fashion on the left fallopian tube was grasped in the midportion good knuckle 2 free tied with 0 chromic the peritoneum pierced and the distal and proximal legs free tied with 0 chromic the portion between cut passed off as portion of left fallopian tube. Hemostasis was assured freed fallopian tube incision. The uterine incision inspected 1 last time noted be hemostatic the laps removed and accounted for after the uterus returned the and the uterine incision was intact. The fascia closed with continuous running 0 Vicryl from lateral edge to lateral edge. Irrigation subcutaneous layer and the skin closed with 4-0 Monocryl glue QBL was 275. All sponge, needle, instrument counts were correct. There were no immediate complications Specimen: Yes ( bilateral portions of fallopian tube) Estimated Blood Loss: 275 Drains: No Packing: No Pathology: Yes Complications: No immediate complications Condition: Stable Disposition: Floor Baby Date of : 04/21/24 Time of : 06:00 Gestational Age by Date: 39 Infant gender: Male Weight (pounds): 6 Weight (ounces): 12 presentation: vertex position: Right Occiput Anterior Placenta delivery description: Manual Removal Cord Vessel Description: 3 Vessels
--- NOTE | 2024-04-21 06:45 | PM.DS ---
DS: Admitting Diagnosis Discharge Date 04/22/24 <Froylan May MD - Last Filed: 04/22/24 10:14> Admitting Diagnosis term / previous section/sterilization <Ervin Pool MD - Last Filed: 04/23/24 16:05> DS: Discharge Diagnosis Discharge Diagnosis (1) Term : Code(s): Z34.90 - Encounter for supervision of normal , unspecified, unspecified trimester <Ervin Pool MD - Last Filed: 04/23/24 16:05> Status: Acute <Ervin Pool MD - Last Filed: 04/23/24 16:05> (2) Previous section: Code(s): Z98.891 - History of uterine scar from previous surgery <Ervin Pool MD - Last Filed: 04/23/24 16:05> Status: Acute <Ervin Pool MD - Last Filed: 04/23/24 16:05> (3) Sterilization: Code(s): Z30.2 - Encounter for sterilization <Ervin Pool MD - Last Filed: 04/23/24 16:05> Status: Acute <Ervin Pool MD - Last Filed: 04/23/24 16:05> DS: Summary Hospital Course Reason for hospitalization: patient was admitted on the day of her scheduled section tubal ligation with ruptured membranes she was noted be summer and underwent repeat low-transverse section bilateral tubal ligation <Ervin Pool MD - Last Filed: 04/23/24 16:05> Hospital Course: patient's hospital course unremarkable. She remained afebrile. She was up, voiding without difficulty, eating regular diet, ambulating, and generally without complaints. <Ervin Pool MD - Last Filed: 04/23/24 16:05> Time Spent with Patient Time attestation: Total time spent providing and/or coordinating discharge services: <Ervin Pool MD - Last Filed: 04/23/24 16:05> Exam Const: General: cooperative, healthy appearing and comfortable <Ervin Pool MD - Last Filed: 04/23/24 16:05> Nutritional Appearance: average body habitus <Ervin Pool MD - Last Filed: 04/23/24 16:05> Orientation/consciousness: oriented to person, oriented to place and oriented to time <Ervin Pool MD - Last Filed: 04/23/24 16:05> Resp: Effort & Inspection: normal respiratory effort <Ervin Pool MD - Last Filed: 04/23/24 16:05> Cardio: Rate: regular rate <Ervin Pool MD - Last Filed: 04/23/24 16:05> Rhythm: regular rhythm <Erivn Pool MD - Last Filed: 04/23/24 16:05> Heart sounds: S1 normal heart sound present and S2 normal heart sound present <Ervin Pool MD - Last Filed: 04/23/24 16:05> GI: Inspection: normal to inspection and incision ( Wound clean dry and intact) <Ervin Pool MD - Last Filed: 04/23/24 16:05> Discharge Plan Discharge Attending physician on discharge: Ervin Stratton <Ervin Pool MD - Last Filed: 04/23/24 16:05> Ervin Stratton <Froylan May MD - Last Filed: 04/22/24 10:14> Discharging Clinician: Froylan May <Ervin Pool MD - Last Filed: 04/23/24 16:05> Froylan May <Froylan May MD - Last Filed: 04/22/24 10:14> Patient Disposition: Home, Self-Care <Ervin Pool MD - Last Filed: 04/23/24 16:05> Activity: may shower, may drive after 2 weeks and pelvic rest <Ervin Pool MD - Last Filed: 04/23/24 16:05> may shower, may drive after 2 weeks and pelvic rest <Froylan May MD - Last Filed: 04/22/24 10:14> Diet: regular <Ervin Pool MD - Last Filed: 04/23/24 16:05> regular <Froylan May MD - Last Filed: 04/22/24 10:14> Wound Care Instructions: incision open to air <Ervin Pool MD - Last Filed: 04/23/24 16:05> incision open to air <Froylan May MD - Last Filed: 04/22/24 10:14> Discharge Instructions: Education: Mom and Baby Guide Given to: Mother Follow-Up: Call your delivering provider's office for an appointment to be seen in: 4 Weeks Per instructions from director semiconductor's office, bring baby to 1st floor nursery Wednesday, April 24 for bilicheck. BREAST CARE: * Wear a snug supportive bra. * For engorgement discomfort: Breast Feeding: * Apply warm moist washcloths * Express milk as needed to relieve engorgement * Wear loose clothing Bottle Feeding: * May apply ice packs * For sore nipples: * Identify correct latch-on * Apply warm moist washcloths before and after nursing * Air dry nipples after nursing * May apply Lansinoh cream to nipples ABDOMINAL INCISION: (if applicable) * Allow incision to air dry * Do NOT use lotions for powders on your incision * When showering, allow soap and water to run over the incision, but do not wash incision EPISIOTOMY/PERINEAL CARE: * Until bleeding stops, use your corinne bottle after urinating * Change your pad frequently throughout the day * You may take sitz baths several times a day (fill your bathtub with warm water and soak for 20 minutes.) Do NOT bathe in the water * No tub baths until seen by your physician - You may shower ACTIVITY: * Rest as much as possible. * Do not exercise or lift anything heavier than your baby (such as laundry or other children.) * Avoid stairs or driving as much as possible. * Do not put anything into the vagina. No douching, tampons, or sexual activity until seen by physician. NOTIFY PHYSICIAN IF YOU HAVE ANY QUESTIONS OR IF ANY OF THE FOLLOWING SYMPTOMS OCCUR: * If your incision becomes red, swollen, or more painful than what you have experienced in the hospital. * If your vaginal bleeding becomes foul smelling. * If your vaginal bleeding becomes more heavy than a period or if your bleeding changes from pink to bright red. However, you may pass an occasional walnut-sized clot once or twice for the first week . * If you experience a sharp, shooting pain in you calves. * If you discover a hard, reddened area on your breast or if you experience flu-like symptoms. DIET: * Eat regular, well-balanced meals. * Drink plenty of fluids daily. If , drink to thirst. Call or return if temperature above 100.4? F, increased abdominal pain, increased vaginal bleeding or any new problems. <Ervin Pool MD - Last Filed: 04/23/24 16:05> Patient Language: Mongolian <Ervin Pool MD - Last Filed: 04/23/24 16:05> Stand Alone Forms: General Discharge Information <Ervin Pool MD - Last Filed: 04/23/24 16:05> Follow-up/Referrals: Ervin Stratton MD [Physician] - 4 Weeks <Ervin Pool MD - Last Filed: 04/23/24 16:05> Discharge Medications: New hydrocodone-acetaminophen 5-325 mg tablet 1 tablet PO Q4H PRN (Reason: pain) Qty: 30 0RF ibuprofen 600 mg tablet 600 mg PO Q6H PRN (Reason: cramps) Qty: 30 0RF ferrous sulfate 325 mg (65 mg iron) tablet 325 mg PO DAILY Qty: 30 0RF Continued Vitamin 27 mg iron- 800 mcg tablet 1 tablet PO DAILY <Ervin Pool MD - Last Filed: 04/23/24 16:05> Date of admission: 04/21/24 03:39 <Ervin Pool MD - Last Filed: 04/23/24 16:05> Primary Care Provider: UNKNOWN,DOCTOR <Ervin Pool MD - Last Filed: 04/23/24 16:05> Admitting Provider: Ervin Stratton <Ervin Pool MD - Last Filed: 04/23/24 16:05> Attending physician on admission: Ervin Stratton <Ervin Pool MD - Last Filed: 04/23/24 16:05> Condition: Stable <Ervin Pool MD - Last Filed: 04/23/24 16:05>
[2024-04-21] MEDS: OXYTOCIN 30 UNITS/NS 500 ML 30 UNITS/500 ML BAG 125 UNITS IV CONT (07:10)
[2024-04-21] MEDS: LIDOCAINE 5% PATCH 1 PATCH (07:25)
[2024-04-21 07:33] LABS: OBXCEM ROM Plus Positive (Negative)
[2024-04-21] MEDS: MORPHINE SULFATE INJ (*CRX) 10 MG/ML AMP 2 MG IV PUSH ×3 (07:58→08:55)
--- NOTE | 2024-04-21 09:31 | OBPPTRN ---
0930-Patient transferred to post room #290 via stretcher. Support person present. Oriented to unit, room, information board, rooming in, admission packet and security measures. Patient verbalizes understanding.
[2024-04-21] MEDS: KETOROLAC 15 MG/ML VIAL (*BKC) IV PUSH ×3 (10:53→22:49)
[2024-04-21] MEDS: SIMETHICONE 80 MG TAB.CHEW PO ×2 (10:53→16:55)
[2024-04-21] MEDS: ACETAMINOPHEN 325 MG TABLET 650 MG PO ×3 (10:53→22:47)
[2024-04-21] MEDS: DEXTROSE 5%/0.45% SOD CHL 1,000 ML 125 ML IV CONT (12:44)
--- NOTE | 2024-04-21 16:42 | PC.NURSE ---
1115. Breast pump provided due to infant in level 2 nursery. Instructions given on cleaning, care, usage, that there should be no pain, pumping schedule for milk production, collection, and storage of human milk. Patient was assessed for correct placement, flange size, to pump for comfort and nipple stretching/stimulation for adequate milk production every 3 hours (8 times in 24 hours) 1-2 times at night. Parents are encouraged to record the pumping schedule on the feeding sheet.?Mother voiced understanding of the education shared along with mom/baby guide and the pump measurement, flange fit handout for additional resource information. Reported to the Primary RN.
[2024-04-21] MEDS: DOCUSATE SODIUM 100 MG CAPSULE PO (16:55)
[2024-04-22 01:00] VITALS: BP 115/63; PULSE 64; RESP 16; TEMP 36.8; O2SAT 97
[2024-04-22] MEDS: KETOROLAC 15 MG/ML VIAL (*BKC) IV PUSH (04:38)
[2024-04-22] MEDS: ACETAMINOPHEN 325 MG TABLET 650 MG PO ×2 (04:38→10:30)
[2024-04-22 06:14] LABS: Basophils Percent Auto 0.1 % (0.2-1.2); Eosinophils Percent Auto 0.3 % (0-4.4); Hematocrit 31.3 % (37.0-47.0); Hemoglobin 9.9 g/dL (12.0-15.0); Immature Granulocyte Absolute 0.05 K/mm3 (0.00-0.031); Immature Granulocyte Percent A 0.4 % (0-0.5); Lymphocytes Percent Auto 13.7 % (18.3-44.2); Mean Corpuscular HGB Conc 31.6 g/dl (32-36); Mean Corpuscular Hemoglobin 28.5 pg (26-34); Mean Corpuscular Volume 90.2 fl (80-100); Monocytes Absolute Auto 0.6 K/mm3 (0.1-0.6); Neutrophils Absolute Auto 9.4 K/mm3 (1.3-6.7); Neutrophils Percent Auto 80.5 % (45.5-73.1); Platelet Count Result 186 k/mm3 (150-375); Red Blood Count 3.47 M/mm3 (4.2-5.4); Red Cell Distribution Width 15.7 % (11.5-14.5); White Blood Count 11.7 K/mm3 (4.5-10.0)
[2024-04-22 08:00] VITALS: BP 130/75; PULSE 78; RESP 18; TEMP 36.7; O2SAT 99
--- NOTE | 2024-04-22 09:50 | PC.NURSE ---
Patient intention is to pump and bottle feed. She has a Spectra pump at home. Encouraged consistency and reviewed realistic expectations of production in immediate period. Mom has the phone number if assistance is needed after discharge. Resources in mom/baby guide reviewed. Patient verbalized understanding of the information shared. Reported to primary RN.
--- NOTE | 2024-04-22 10:10 | P.PNOB_ITS ---
OB - PN: Subj Subjective Date/time seen: 04/22/24 10:10 Narrative: Pain OK. Tolerating diet. Baby was transferred, and she would very much like to be discharged. This is her fourth child and she feels very comfortable going. OB - PN: Obj Data Labs 04/22/24 04:43 Labs: Laboratory Results - last 24 hr 04/22/24 04:43 WBC 11.7 H RBC 3.47 L Hgb 9.9 L Hct 31.3 L MCV 90.2 MCH 28.5 MCHC 31.6 L RDW 15.7 H Plt Count 186 MPV 10.0 Immature Gran % (Auto) 0.4 Neut % (Auto) 80.5 H Lymph % (Auto) 13.7 L [place] % (Auto) 5.0 Eos % (Auto) 0.3 Baso % (Auto) 0.1 L Lymph # (Auto) 1.60 [place] # (Auto) 0.6 Eos # (Auto) 0.0 Baso # (Auto) 0.0 Abs Immat Gran (auto) 0.05 H Absolute Neuts (auto) 9.4 H Absolute Nucleated RBC 0.000 Nucleated RBC % 0.0 OB - PN A/P Plan day: 1 Comments: A: POD#1, doing well. P: Home to f/u 4 weeks. Exam 2 Narrative: AVSS ABD soft, nontender, fundus firm. Incision c/d/i. EXT nontender
[2024-04-22] MEDS: POLYSACCHARIDE IRON COMPLEX 150 MG CAPSULE PO (10:30)
[2024-04-22] MEDS: SIMETHICONE 80 MG TAB.CHEW PO (10:30)
[2024-04-22] MEDS: DOCUSATE SODIUM 100 MG CAPSULE PO (10:30)
[2024-04-22] MEDS: IBUPROFEN 600 MG TABLET PO (10:30)
[2024-04-22] MEDS: MULTIVIT/MIN/PREN/FOL AC/IRON TABLET 1 TAB PO (10:30)
[2024-04-22] MEDS: LIDOCAINE 5% PATCH 1 PATCH TRANSDERM (10:31)
== END 2024-04-22 13:25 | disposition home or self-care (01) | DRG 785 ==
LOC: ANHOB2 04-26 13:02 → ANHLDR 04-26 13:02
PROVIDERS: Admitting Provider Obstetrics & Gynecology; Visit Provider Obstetrics & Gynecology
PROC: 10D00Z1 Extraction of Products of Conception, Low, Open Approach (ICD-10-PCS; CPT 59514; principal; 2024-04-21 07:30)
DX: O34.211 Maternal care for low transverse scar from previous cesarean delivery (principal); Z37.0 Single live birth; Z3A.39 39 weeks gestation of pregnancy; Z30.2 Encounter for sterilization
CPT/HCPCS: 36415; 84112; 85025; 88302; A9270; J0456; J0690; J1100; J1885; J2270; J2274; J2371; J2405; J2590; J3105; J7120